=== PATIENT | male | born 1955 | race Caucasian/White ===

== ENCOUNTER → 2016-03-08 | Outpatient (REF) | payer MEDICARE, OTHER ==
[~2016-03-08] MED LIST: ALDA25TA2 PO; AMBI12.52 PO; ASPI81TA85 PO; ATEN25TA PO; ATEN50TA2 PO; CRES40TA PO; DIGO0.12 PO; FERR325T3 PO; FLOM5CAP PO; FURO20TA2 PO; FURO40TA2 PO; HUMA100I5 SC; HUMA75VL SC; INSULADS SC; INSULANT SC; LEVA500T PO; LEXA1TAB PO; LISI25TA PO; LOPRESSOR PO; MAGN64TASA PO; METO-209 PO; MILKSUS PO; NEXI40CA PO; NITR4TASL SL; OXYC30TA72 PO; PROT1TAB2 PO; REGL10TA6 PO; REME15TA PO; TIZA4CAP3 PO; TOUJ1.2I SC; TYLE325T5 PO; VITMTA PO; XARE20TA PO; ZETI10TA2 PO; ZOLP10TA2 PO; [UNRECOGNIZED DRUG - CODE] PO
== END ==
LOC: M LAB REF 16:39
PROVIDERS: ATTEND Nurse Practitioner Adult Health
DX: D64.9 Anemia, unspecified (principal)

== ENCOUNTER 2016-03-09 13:37 | Outpatient (CLI) | payer MEDICARE, OTHER ==
[~2016-03-09 13:37] MED LIST changes: -INSULANT SC; -[UNRECOGNIZED DRUG - CODE] PO
[2016-03-09] MEDS ORDERED: diphenhydrAMINE 25 MG CAP PO ONE (14:00)
[2016-03-09] MEDS ORDERED: ACETAMINOPHEN TAB 650MG DOSE (2X325MG) PO ONE (14:00)
[2016-03-09] MEDS ORDERED: INSULANT SC (14:13)
[2016-03-09] MEDS ORDERED: HUMA100I5 SC (14:13)
[2016-03-09] MEDS ORDERED: METO-209 PO (14:13)
[2016-03-09] MEDS ORDERED: [UNRECOGNIZED DRUG - CODE] PO (14:13)
== END 2016-03-09 15:58 | disposition home or self-care (01) ==
LOC: M INFU 13:37
PROVIDERS: ATTEND Nurse Practitioner Adult Health
DX: D64.9 Anemia, unspecified (principal); Z88.8 Allergy status to other drugs, medicaments and biological substances; Z91.018 Allergy to other foods; Z79.899 Other long term (current) drug therapy; Z79.4 Long term (current) use of insulin

== ENCOUNTER 2016-03-13 12:35 | Outpatient (CLI) | payer MEDICARE, OTHER ==
[~2016-03-13] VITALS: Ht 182.9 cm; Wt 97.1 kg
[~2016-03-13 12:35] MED LIST changes: +INSULANT SC; +[UNRECOGNIZED DRUG - CODE] PO
[2016-03-13] MEDS ORDERED: diphenhydrAMINE 25 MG CAP PO ONE (13:45)
[2016-03-13] MEDS ORDERED: ACETAMINOPHEN TAB 650MG DOSE (2X325MG) PO ONE (13:45)
== END 2016-03-13 20:30 | disposition home or self-care (01) ==
LOC: M INFU 12:35 → M PED 16:30 → M INFU 20:30
PROVIDERS: ATTEND Nurse Practitioner Adult Health
DX: D64.9 Anemia, unspecified (principal); I10 Essential (primary) hypertension; E78.5 Hyperlipidemia, unspecified; E11.9 Type 2 diabetes mellitus without complications; G47.30 Sleep apnea, unspecified; J44.9 Chronic obstructive pulmonary disease, unspecified; M54.9 Dorsalgia, unspecified; M19.90 Unspecified osteoarthritis, unspecified site; Z88.8 Allergy status to other drugs, medicaments and biological substances; Z79.01 Long term (current) use of anticoagulants; Z79.891 Long term (current) use of opiate analgesic; Z79.84 Long term (current) use of oral hypoglycemic drugs; Z79.4 Long term (current) use of insulin; Z79.899 Other long term (current) drug therapy; Z95.810 Presence of automatic (implantable) cardiac defibrillator; Z95.5 Presence of coronary angioplasty implant and graft; Z87.891 Personal history of nicotine dependence
CPT/HCPCS: 36415; 36430; 86850; 86870; 86900; 86901; 86905; 86920; P9016

== ENCOUNTER → 2016-03-16 | Outpatient (REF) | payer MEDICARE, OTHER | LOC: M LAB REF 13:04 | PROVIDERS: ATTEND Internal Medicine Nephrology | DX: D72.829 Elevated white blood cell count, unspecified (principal) ==

== ENCOUNTER → 2016-03-17 | Outpatient (REF) | payer MEDICARE, OTHER | LOC: M LAB REF 12:49 | PROVIDERS: ATTEND Internal Medicine Nephrology | DX: D72.829 Elevated white blood cell count, unspecified (principal) ==

== ENCOUNTER → 2016-03-22 | Outpatient (REF) | payer MEDICARE, OTHER ==
[2016-03-22 18:07] LABS: RETIC HEMOGLOBIN CONTENT CHr 31.4 PG (24-36); RETICULOCYTE % ADVIA2120 1.4 % (0.5-1.5)
== END ==
LOC: M LAB REF 16:46
PROVIDERS: ATTEND Internal Medicine
DX: N18.3 Chronic kidney disease, stage 3 (moderate) (principal); R63.4 Abnormal weight loss; D50.9 Iron deficiency anemia, unspecified

== ENCOUNTER → 2016-03-29 | Outpatient (REF) | payer MEDICARE, OTHER ==
[2016-03-29 18:05] LABS: PERCENT SATURATION 14.6 % (19.7-37.4)
== END ==
LOC: M LAB REF 17:03
PROVIDERS: ATTEND Internal Medicine Nephrology
DX: D50.9 Iron deficiency anemia, unspecified (principal)

== ENCOUNTER → 2016-04-04 | Outpatient (CLI) | payer MEDICARE, OTHER ==
--- NOTE | 2016-04-04 14:44 | REP ---
CAROTID ULTRASOUND: Real-time ultrasound evaluation and duplex Doppler interrogation of the extracranial carotid vasculature is performed. There is moderate plaquing and narrowing in both carotid bulbs extending into the internal and external carotid arteries. Luminal narrowing is less than 50%. There is no evidence of hemodynamically significant stenosis of either internal carotid artery. Normal flow velocities are seen. The vertebral arteries demonstrate normal direction of flow. RIGHT LEFT Peak systolic velocity ICA 63.9 cm/s 68.2 cm/s End diastolic velocity ICA 10.2 cm/s 26.2 cm/s Peak systolic velocity CCA 112.5 cm/s 84.8 cm/s Peak systolic velocity ECA 80.3 cm/s 102.1 cm/s ICA/CCA ratio 0.57 0.8 IMPRESSION: Bilateral luminal narrowing of the internal carotid arteries less than 50%. No evidence of hemodynamically significant stenosis. Signed by Dale Gilman MD 04/04/2016 02:36 P
== END ==
LOC: M RAD 13:19
PROVIDERS: ATTEND Physician Assistant
DX: R09.89 Other specified symptoms and signs involving the circulatory and respiratory systems (principal)

== ENCOUNTER → 2016-04-05 | Outpatient (REF) | payer MEDICARE, OTHER | END | disposition home or self-care (01) | LOC: M LAB REF 14:58 | PROVIDERS: ATTEND Nurse Practitioner Adult Health | DX: I13.0 Hypertensive heart and chronic kidney disease with heart failure and stage 1 through stage 4 chronic kidney disease, or unspecified chronic kidney disease (principal); I48.0 Paroxysmal atrial fibrillation ==

== ENCOUNTER → 2016-04-11 | Outpatient (REF) | payer MEDICARE, OTHER | LOC: M LAB REF 12:24 | PROVIDERS: ATTEND Nurse Practitioner Adult Health | DX: L81.8 Other specified disorders of pigmentation (principal) ==

== ENCOUNTER 2016-04-14 11:03 | Outpatient (CLI) | payer MEDICARE, OTHER ==
[~2016-04-14] VITALS: Ht 185.4 cm; Wt 93.6 kg
[~2016-04-14 11:03] MED LIST changes: +IRON SUCROSE 25 MG in NS 50 ML IV ONE
[2016-04-14] MEDS ORDERED: IRON SUCROSE 475 MG in NS 250 ML IV ONE (12:00)
== END 2016-04-14 16:00 | disposition home or self-care (01) ==
LOC: M INFU 11:03
PROVIDERS: ATTEND Internal Medicine Nephrology
DX: D50.9 Iron deficiency anemia, unspecified (principal); Z79.899 Other long term (current) drug therapy; Z79.4 Long term (current) use of insulin; Z88.8 Allergy status to other drugs, medicaments and biological substances; Z91.018 Allergy to other foods
CPT/HCPCS: 96365; 96366; J1756

== ENCOUNTER → 2016-05-16 | Outpatient (REF) | payer MEDICARE, OTHER ==
[~2016-05-16] MED LIST changes: +ASCO25TA PO; +ASPI81TA21 PO; +BACT2OIN12; +ESCI20TA PO; -IRON SUCROSE 25 MG in NS 50 ML IV ONE; +LACT20EL PO; +LISI2.5T3 PO; +METO12TA PO; +MOVA1TAB PO; +OCEA0.654; +OXYC1TAB23 PO; +PROA1AER INH; +PROBCAP4 PO; +ROCA0.25 PO; +SUCR1TA PO; +TORS20TA2 PO; +VITA100066 PO
== END ==
LOC: M LAB REF 16:19
PROVIDERS: ATTEND Nurse Practitioner Adult Health
DX: I50.42 Chronic combined systolic (congestive) and diastolic (congestive) heart failure (principal); R00.1 Bradycardia, unspecified; D50.9 Iron deficiency anemia, unspecified

== ENCOUNTER 2016-05-18 14:52 | Outpatient (CLI) | payer MEDICARE, OTHER ==
[~2016-05-18 14:52] MED LIST changes: +ACETAMINOPHEN TAB 650MG DOSE (2X325MG) PO SCH; -ASCO25TA PO; -ASPI81TA21 PO; -BACT2OIN12; -ESCI20TA PO; -LACT20EL PO; -LISI2.5T3 PO; -METO12TA PO; -MOVA1TAB PO; -OCEA0.654; -OXYC1TAB23 PO; -PROA1AER INH; -PROBCAP4 PO; -ROCA0.25 PO; -SUCR1TA PO; -TORS20TA2 PO; -VITA100066 PO; +diphenhydrAMINE 25 MG CAP PO SCH
[2016-05-18 15:05] VITALS: BP 117/54
[2016-05-19] MEDS ORDERED: TORS20TA2 PO ×2 (10:05)
[2016-05-19] MEDS ORDERED: ASCO25TA PO (10:05)
[2016-05-19] MEDS ORDERED: PROBCAP4 PO (10:05)
[2016-05-19] MEDS ORDERED: OCEA0.654 (12:49)
[2016-05-19] MEDS ORDERED: PROA1AER INH (12:49)
[2016-05-19] MEDS ORDERED: LISI2.5T3 PO (12:49)
[2016-05-19] MEDS ORDERED: ROCA0.25 PO (12:49)
[2016-05-19] MEDS ORDERED: SUCR1TA PO (12:49)
[2016-05-19] MEDS ORDERED: ESCI20TA PO (12:49)
[2016-05-19] MEDS ORDERED: ALDA25TA2 PO (12:49)
[2016-05-19] MEDS ORDERED: FLOM5CAP PO (12:49)
[2016-05-19] MEDS ORDERED: ASPI81TA21 PO (12:49)
[2016-05-19] MEDS ORDERED: VITA100066 PO (12:49)
[2016-05-19] MEDS ORDERED: LACT20EL PO (12:49)
[2016-05-19] MEDS ORDERED: METO12TA PO (12:49)
[2016-05-19] MEDS ORDERED: MOVA1TAB PO (12:49)
== END 2016-05-18 19:30 | disposition home or self-care (01) ==
LOC: M OPCLI4PR 14:52 → M OPCLIPED 14:52 → M PED 14:57 → M OPCLI4PR 14:57 → M PED 15:22 → M OPCLIPED 19:30
PROVIDERS: ATTEND Nurse Practitioner Adult Health
DX: D64.9 Anemia, unspecified (principal); Z88.8 Allergy status to other drugs, medicaments and biological substances
CPT/HCPCS: 36430; P9016

== ENCOUNTER 2016-05-19 09:42 | Observation (INO) | payer MEDICARE, OTHER ==
[~2016-05-19] VITALS: Ht 182.9 cm; Wt 94.6 kg
[~2016-05-19 09:42] MED LIST changes: +**UNRESOLVED NON-FORMULARY MED ORDER XX SCH; -ACETAMINOPHEN TAB 650MG DOSE (2X325MG) PO SCH; -diphenhydrAMINE 25 MG CAP PO SCH
[2016-05-19] MEDS ORDERED: PROBCAP4 PO (10:05)
[2016-05-19] MEDS ORDERED: TORS20TA2 PO ×2 (10:05)
[2016-05-19] MEDS ORDERED: ASCO25TA PO (10:05)
[2016-05-19 11:27] LABS: INR 2.03
[2016-05-19] MEDS ORDERED: PROPOFOL 200 MG/20 ML VIAL As Ordered ONE (12:39)
[2016-05-19] MEDS ORDERED: dexameTHASONE 4 MG/ML 1ML VIAL (J1100) As Ordered ONE (12:39)
[2016-05-19] MEDS ORDERED: LIDOCAINE 2% INJ 100 MG/5 ML SDV (FOR ANES.) As Ordered ONE (12:39)
[2016-05-19] MEDS ORDERED: ROCURONIUM BROMIDE 50 MG/5 ML VIAL As Ordered ONE (12:39)
[2016-05-19] MEDS ORDERED: ONDANSETRON 4MG/2ML VIAL (J2405) As Ordered ONE (12:39)
[2016-05-19] MEDS ORDERED: MIDAZOLAM INJ 2 MG/2 ML VIAL (J2250) As Ordered ONE (12:40)
[2016-05-19] MEDS ORDERED: fentaNYL 250 MCG/5 ML INJECTION (J3010) As Ordered ONE (12:40)
[2016-05-19 12:46] LABS: CALCIUM LEVEL 9.2 MG/DL (8.8-10.2); CREATININE FOR GFR 2.54 MG/DL (0.70-1.30); GLOMERULAR FILTRATION RATE 27.7 (>49); POTASSIUM SERUM 3.4 MEQ/L (3.5-5.1)
[2016-05-19] MEDS ORDERED: OCEA0.654 (12:49)
[2016-05-19] MEDS ORDERED: METO12TA PO (12:49)
[2016-05-19] MEDS ORDERED: ROCA0.25 PO (12:49)
[2016-05-19] MEDS ORDERED: FLOM5CAP PO (12:49)
[2016-05-19] MEDS ORDERED: ESCI20TA PO (12:49)
[2016-05-19] MEDS ORDERED: VITA100066 PO (12:49)
[2016-05-19] MEDS ORDERED: LISI2.5T3 PO (12:49)
[2016-05-19] MEDS ORDERED: SUCR1TA PO (12:49)
[2016-05-19] MEDS ORDERED: ALDA25TA2 PO (12:49)
[2016-05-19] MEDS ORDERED: MOVA1TAB PO (12:49)
[2016-05-19] MEDS ORDERED: ASPI81TA21 PO (12:49)
[2016-05-19] MEDS ORDERED: PROA1AER INH (12:49)
[2016-05-19] MEDS ORDERED: LACT20EL PO (12:49)
[2016-05-19] MEDS ORDERED: SODIUM CHLORIDE 0.9% NASAL GEL 15MG (AYR) As Ordered ONE (12:51)
[2016-05-19] MEDS ORDERED: METHYLENE BLUE 0.5% (5MG/ML) 10 ML AMP (PROVAYBLUE)(Q9968 PER 1MG) As Ordered ONE (12:51)
[2016-05-19] MEDS ORDERED: EPINEPHrine INJ 1 MG/ML 1ML VIAL/AMP As Ordered ONE (12:51)
[2016-05-19] MEDS ORDERED: LIDOCAINE W/EPINEPHRINE 1% 20ML VIAL As Ordered ONE (12:51)
--- NOTE | 2016-05-19 13:07 | HPEPDOC ---
Medical History and Physical Date of Admission 05/19/16 History and Physical ATTENDING: Dr. Jennings PCP: Dr Palomino litigation legal assistant Dr Perera CC: Rt side epistaxis HPI: 60yoM with a past medical history significant for CAD/CABG, Afib, IDDM, anemia, recurrent epistaxis who reports sudden onset of rt sided epistaxis this AM while driving to [employer]. Noted bleeding and clots and difficulty getting the bleeding to subside to he turned around and came to ED. Pt denies SOB/CP, or recent NTG use. Denies any fevers, chills, weakness, fatigue, PULLIAM,cough, palpitations, abdominal pain, N/V/D or changes in bowel or bladder habits. Upon presentation to the hospital the patient was found to have Rt sided epistaxis, anemia, thus the hospitalist team was consulted. ENT is consulted, has seen pt in ED, and is planning surgical intervention. PMHx: recurrent epistaxis with cautery procedures, rt side. H/O WA/CAD/Stent/CABG Afib CHF TTE 07/04 EF 40%, Grade 2 DD Hypomagnesemia H/O Fe def Anemia HLD Depressiion Insomnia HTN IDDM Chronic knee pain Chronic constipation PSHX: CABG 1990 Redo CABG 1997 AICD B/L Ankle surgery Rt knee surgery x 2 EGD 01/04 Campos chronic inflammation Colonoscopy 01/04 adenomatous polyp x 1 Bronchoscopy 02/28 Osmany Cautery epistaxis -ENT. SOCHX: Resides in: [place] Marital Status: Kids: 4 Employment: retired [employer] Tobacco use: quit 1990 ETOH: Quit 1 year ago, previously drank daily. Illicit Drugs: Denies Recent travel: denies Advanced directives: none FAMHX: Mother: emphysema Father: Ca Siblings: 4 sister, 1 brother Alive, well Children: Alive, well Unexpected deaths due to medical reasons: None. ROS: As noted in HPI, otherwise 11pt ROS of systems reviewed and unremarkable. PE: GEN: 60yoM, appears stated age. Well-nourished, well developed. No acute distress. Alert and oriented x 3. Pleasant, interactive. HEENT: Normocephalic, atraumatic. Pupils are equal, round, and reactive to light. Extraocular movements are intact. No nystagmus appreciated. Sclera are nonicteric. Conjunctiva without injection. Nose midline. Packing noted Rt nostril. EACs both patent BL. TMs both visualized and blanco with good cone of light, no bulging or erythema. No facial asymmetry. Moist mucous membranes. Dentition fair. Pharynx pink and moist, no cobblestoning. Neck supple, trachea midline. No lymphadenopathy or thyromegaly appreciated. CHEST: Regular rate and rhythm, +S1, +S2. No JVD. LUNGS: Clear to auscultation bilaterally. No wheezes, rales, or rhonchi. Breathing appears symmetric and easy. Patient is speaking in full sentences. No accessory muscle use. ABD: Round, soft, non-tender, non-distended. +Bowel sounds throughout. No rebound or guarding. No costovertebral angle tenderness. EXT: Pulses 2+ bilaterally dorsalis pedis and radial. No lower extremity edema appreciated. Chronic venous changes noted. SKIN: [place], dry, warm. Capillary refill <2sec. No rashes. NEURO: Alert and oriented x 3. Cranial nerves III-XII are intact. No focal deficits appreciated. A&P: HPI: 60yoM with a past medical history significant for CAD/CABG, Afib, IDDM, anemia, recurrent epistaxis who reports sudden onset of rt sided epistaxis this AM while driving to [employer]. Noted bleeding and clots and difficulty getting the bleeding to subside to he turned around and came to ED The patient will be admitted to PCU Dr. Jennings's service. Pt is discussed with Dr Trejo. Pt is currently going directly to the OR as per ENT. Recurrent Epistaxis. Pt has been evaluated by ENT and plan is for OR. Type and cross ordered. Consent for blood on chart. IVF at 100cc/hr. TC. IVF ordered. Baseline apears to be 1.8-1.9. Hypokalemia. K3.4 noted. Will recheck at 6 PM. Supplement if needed. Acute Blood loss Anemia. H/O Fe def. On Fe supplement as outpt. T&C completed. Consent on chart. Monitor H/H Q6. Afib. Hold Xarelto for now. Re asses postop. CAD/H/O WA/CABG. No recent NTG use. PCU/TM. Plan to order meds post op. CHF/DD. TTE EF40%/Gr2 DD. Monitor closely. Cautious use of IVF. Reorder meds postop. Hypomagnesemia. Add shanna level to labs. HLD. restart Statin post op. IDDM. Pt takes Lantus/SSI Chronic knee pain. Pt takes Zohydro. chronic constipation. Pt takes Movantik. DVT prophylaxis. SCD/TEDS The patient is a Full CODE. Attending note: patient seen and examined independently. Discussed finding and treatment plan as outlined above. Vital Signs Vital Signs Label Value Date Time Patient Temperature 99.3 degrees F 05/19/16 1247 Temperature Source Oral 05/19/16 1247 Pulse 54 05/19/16 1247 Respiratory Rate 16 bpm 05/19/16 1247 Blood Pressure Assessment 139/63 (88) 05/19/16 1247 Location Left Arm Source Automatic Cuff (NIBP) Bedside Pulse Oximetry 99 % 05/19/16 1247 Item Value Date Time Oxygen Delivery Method Room Air 05/19/16 1247 Laboratory Data Labs 24H Laboratory Tests 2 05/19/16 11:08: Activated Partial Thromboplast Time 47.5H, Prothromb Time International Ratio 2.03, Prothrombin Time 23.0H 05/19/16 11:09: Anion Gap 7L, Blood Urea Nitrogen 47H, Creatinine 2.54H, Sodium Level 137, Potassium Level 3.4L, Chloride Level 103, Carbon Dioxide Level 27, Calcium Level 9.2, Glomerular Filtration Rate 27.7L CBC/BMP Laboratory Tests 05/19/16 11:09 Calcium Level 9.2 Home Medications Scheduled (Zohydro ER) 50 Mg Cap 100 MG PO BID Ascorbic Acid (Vitamin C) 250 Mg Tab 250 MG PO BID Calcitriol (Rocaltrol) 0.25 Mcg Cap 0.25 MCG PO 3XW SUNDAY,SUNDAY,SUNDAY Cholecalciferol (Vitamin D) 1,000 Unit Tab 1,000 UNIT PO QPM Digoxin (Digoxin) 0.125 Mg Tab 0.125 MG PO DAILY Escitalopram Oxalate (Escitalopram Oxalate) 20 Mg Tab 20 MG PO QHS Esomeprazole Magnesium Trihydr (Nexium) 40 Mg Cap 40 MG PO BID Ezetimibe (Zetia) 10 Mg Tab 10 MG PO QPM Ferrous Sulfate (Ferrous Sulfate) 325 Mg Tab 325 MG PO BID Insulin Glargine (Lantus) 1 Units/0.01 Ml Susp 40 UNITS SC BID Insulin Human Lispro (Humalog Kwikpen) 100 Unit/Ml Inj 1 DOSE SC TID PER SLIDING SCALE Lactobacillus Acidophilus (Probiotic) 1 Cap Cap 1 CAP PO DAILY Lisinopril (Lisinopril) 2.5 Mg Tab 2.5 MG PO QHS Magnesium Chloride (Mag64) 64 Mg Tabcr 64 MG PO TID Metoprolol Tartrate (Metoprolol Tartrate) 25 Mg Tab 25 MG PO BID Mupirocin (Bactroban Nasal) 1 Gm Oint 1 GM NA TID Naloxegol Oxalate (Movantik) 12.5 Mg Tab 12.5 MG PO QAM Rosuvastatin Calcium (Crestor) 40 Mg Tab 40 MG PO QPM Sodium Chloride (Larue Nasal [place]) 0.65 % Spr 2 SPRAY NA BID EACH NOSTRIL Spironolactone (Aldactone) 25 Mg Tab 12.5 MG PO DAILY Sucralfate (Carafate) 1 Gm Tab 1 GM PO BID Tamsulosin Hydrochloride (Flomax) 0.4 Mg Cap 0.4 MG PO QAM Torsemide (Torsemide) 20 Mg Tab 40 MG PO QAM Torsemide (Torsemide) 20 Mg Tab 60 MG PO QPM Scheduled PRN Albuterol Sulfate (Proair Hfa) 108 Mcg/Act Aer 2 PUFF INH Q4H PRN PRN SHORTNESS OF BREATH Lactulose (Lactulose) 10 Gm/15 Ml Bailey 30 GM PO PRN PRN PRN CONSTIPATION Nitroglycerin (Nitrostat) 0.4 Mg Subl 0.4 MG SL PRN PRN PRN CHEST PAIN Oxycodone/Acetaminophen (Oxycodone/Acetaminophen 5-325 mg) 1 Tab Tab 1 TAB PO Q6HP PRN PRN pain Zolpidem Tartrate (Zolpidem Tartrate) 10 Mg Tab 10 MG PO QHS PRN PRN SLEEP Allergies Coded Allergies: Talavera Pepper (Unverified Allergy, Severe, Vomitting, throat swells, 10/14/13 ) Per [facility] chart Calamine (Unverified Allergy, Intermediate, Hives, 10/14/13) Per [facility] chart Ketorolac (Unverified Adverse Reaction, Intermediate, Extreme itching, ) Per [facility] chart Daisy Akins May 19, 2016 13:07 SHONNA TREJO DO May 20, 2016 18:01
[2016-05-19] MEDS ORDERED: NS 1,000 ML IV SCH (13:08)
[2016-05-19] MEDS ORDERED: EPINEPHrine 1MG/ML INJ 30ML MD-VIAL As Ordered ONE (13:15)
[2016-05-19] MEDS ORDERED: THROMBIN SOLN 5,000 UNITS VIAL As Ordered ONE (13:18)
[2016-05-19] MEDS ORDERED: SILVER NITRATE APPLICATOR As Ordered ONE (13:19)
[2016-05-19] MEDS ORDERED: OXYMETAZOLINE NASAL SPRAY (AFRIN) As Ordered ONE (13:19)
[2016-05-19] MEDS ORDERED: GLYCOPYRROLATE INJ 0.2 MG/ML 2 ML VIAL As Ordered ONE (14:51)
[2016-05-19] MEDS ORDERED: NEOSTIGMINE 1MG/ML 5 ML SYRINGE (J2710) As Ordered ONE (14:51)
[2016-05-19] MEDS ORDERED: PERCOCET 5MG/325MG TAB As Ordered ONE (15:57)
[2016-05-19] MEDS ORDERED: NORCO, ANEXSIA 5/325MG TABLET (HYDROcodone/ACETAMINOPHEN) PO PRN (16:00)
[2016-05-19] MEDS: PERCOCET 5MG/325MG TAB PO PRN ×2 (16:00→20:12)
[2016-05-19] MEDS ORDERED: ONDANSETRON 4MG/2ML VIAL (J2405) IV PRN ×2 (16:00→18:00)
[2016-05-19] MEDS ORDERED: LR 1,000 ML IV SCH ×2 (16:00→16:30)
[2016-05-19] MEDS ORDERED: fentaNYL 100 MCG/2 ML INJECTION (J3010) IV PRN (16:00)
--- NOTE | 2016-05-19 16:01 | ROOPDOC ---
[facility] Report Of Operation Report of Operation DATE OF PROCEDURE: 05/19/16 PREPROCEDURE DIAGNOSIS: Ear right-sided and recurrent epistaxis with deviation of the nasal septum to the right and turbinate hypertrophy with nasal obstruction POSTPROCEDURE DIAGNOSIS: See above PROCEDURE: #1. Nasal septal reconstruction #2. Bilateral inferior turbinate outfracture #3. Nasal endoscopy with use of bipolar cautery to control right-sided epistaxis SURGEON: Elizabeth Waite M.D. TRUCK FARMER: None ANESTHESIA: General endotracheal DESCRIPTION OF PROCEDURE: Estimated blood loss was approximately 25 mL and the patient had bioreabsorbable nasal pore placed adjacent and lateral to the right middle turbinate at the end of the procedure. The patient was taken to the operating room on an emergent basis from the emergency room after a hospitalist consult due to recurrent and severe right-sided epistaxis which has been a problem since November 2015. I have reviewed with the patient and his the recurrent risks of epistaxis and also this procedure which is to be performed to identify and attempt to control the area of bleeding in the operating room. They wished to proceed. Once the patient was in the operating room he was given a general anesthetic and a timeout was performed. The patient was placed in a modified beachchair position and his nasal area was prepped with Betadine after his eyes were protected with Tegaderm. He was draped in a sterile fashion and the nasal packing that the patient had placed himself was removed. Pledgets that were soaked in Afrin were placed in each nostril for approximately 5 minutes. These were then removed and we evaluated the nasal passageways which confirmed a severe deflection of the nasal septum to the right. An area of brisk bleeding was noted on the right side adjacent to the most severely deflected area on the right. Control of the area was then obtained using bipolar cautery set at 30. We replaced the pledgets for several minutes and then after removal injected around the area with 4 mL of 1% lidocaine with epinephrine 1 100,000. Hemitransfixion incision was made just anterior to this and we elevated a small amount of mucosa and removed a small spur. Incision was less than 1 cm and no closure was carried out. We then cauterized just anterior to the incision and at the anterior margin of the incision with the bipolar cautery. We then perform nasal endoscopy with the 4 mm 0 scope from anterior to posterior and at this point the airway was significantly improved. There was a small spur more posteriorly and we cauterized adjacent to this under endoscopic guidance. There was minimal bleeding in this area. We took some time now and visualized the ostiomeatal unit on the right. There was noted to be an accessory os and we placed a small amount of packing adjacent to this and just medial to this area at the level of the middle turbinate as well. This was performed with resorbable nasal pore. We irrigated out both nasal passageways and performed nasal endoscopy on the left and this appeared clear without bleeding. Both inferior turbinates were outfractured with a Boies nasal elevator. Again nasal endoscopy was carried out and there was no active bleeding and where the bipolar cautery had been used there was no evidence of bleeding whatsoever. The airway looked excellent. The oral cavity was visualized and there was no bleeding. At this point the procedure was terminated. The sponge needle and sharp count were noted to be correct. The patient was awakened, extubated and taken to the recovery room. There were no complications. ELIZABETH WAITE MD May 19, 2016 16:01
[2016-05-19] MEDS ORDERED: SODIUM CHLORIDE NASAL 0.65% SPRAY BTL (OCEAN) PRN (16:30)
[2016-05-19] MEDS ORDERED: TORSEMIDE 20 MG TAB PO SCH (17:00)
[2016-05-19 18:02] LABS: MEAN CORPUSCULAR HEMOGLOBIN 32.2 pg (27.0-33.0); MEAN CORPUSCULAR HGB CONC 34.8 g/dl (32.0-36.5); MEAN CORPUSCULAR VOLUME 92.4 fl (80.0-96.0); RED CELL DISTRIBUTION WIDTH 16.6 % (11.5-14.5); WHITE BLOOD COUNT 6.1 K/mm3 (4.0-10.0)
[2016-05-19] MEDS ORDERED: GLUCOSE 4 GM CHEW TABLET PO PRN (18:15)
[2016-05-19] MEDS ORDERED: LACTULOSE 20 GM/30 ML SYRUP UD PO PRN (18:15)
[2016-05-19] MEDS ORDERED: ALBUTEROL 90 MCG/ACT 8GM HFA INHALER INH PRN (18:15)
[2016-05-19] MEDS ORDERED: NITROGLYCERIN 0.4 MG SUBL TABLET SL PRN (18:15)
[2016-05-19] MEDS ORDERED: GLUCAGON FOR INJ 1 MG VIAL (J1610) SC PRN (18:15)
[2016-05-19] MEDS ORDERED: DEXTROSE 50% 50 ML SYRINGE IV PRN (18:15)
[2016-05-19 18:21] LABS: CALCIUM LEVEL 8.9 MG/DL (8.8-10.2); CREATININE FOR GFR 2.33 MG/DL (0.70-1.30); GLOMERULAR FILTRATION RATE 30.6 (>49); POTASSIUM SERUM 3.2 MEQ/L (3.5-5.1)
[2016-05-19 19:30] VITALS: BP 142/65
[2016-05-19 20:00] VITALS: BP 135/62
[2016-05-19] MEDS ORDERED: POTASSIUM CHLORIDE 10 MEQ SR TABLET PO ONE (20:15)
[2016-05-19 21:00] VITALS: BP 120/60
[2016-05-19] MEDS ORDERED: HumaLOG INSULIN (NovoLOG) PER UNIT SC SCH (21:00)
[2016-05-19] MEDS ORDERED: ROSUVASTATIN 10 MG TAB (CRESTOR) PO SCH (21:00)
[2016-05-19] MEDS ORDERED: VITAMIN D 1,000 INTERNATIONAL UNITS TABLET PO SCH (21:00)
[2016-05-19] MEDS ORDERED: ESCITALOPRAM OXALATE 10 MG TAB (LEXAPRO) PO SCH (21:00)
[2016-05-19] MEDS ORDERED: EZETIMIBE 10 MG TAB (ZETIA) PO SCH (21:00)
[2016-05-19] MEDS ORDERED: zolPIDEM TARTRATE 10MG TAB PO SCH (21:00)
[2016-05-19] MEDS ORDERED: LISINOPRIL *2.5 MG* TAB PO SCH (21:00)
[2016-05-19 22:00] VITALS: BP 124/58
[2016-05-19] MEDS: HYDROCODONE PO SCH (22:18)
[2016-05-19] MEDS: SUCRALFATE 1 GM TAB PO SCH (22:19)
[2016-05-19] MEDS: MAGNESIUM CHLORIDE 64 MG TABCR (SLO MAG) PO SCH (22:20)
[2016-05-19] MEDS: ASCORBIC ACID 250 MG TAB PO SCH (22:21)
[2016-05-19] MEDS: PANTOPRAZOLE 40MG TAB (PROTONIX) PO SCH (22:21)
[2016-05-19] MEDS: FERROUS SULFATE 325MG TAB PO SCH (22:21)
[2016-05-19] MEDS: METOPROLOL TART 25 MG TABLET PO SCH (22:22)
[2016-05-19] MEDS: SODIUM CHLORIDE NASAL 0.65% SPRAY BTL (OCEAN) SCH (22:24)
[2016-05-19] MEDS: LEVEMIR (INSULIN DETEMIR) 1 UNITS/0.01ML SC SCH (22:24)
[2016-05-19 23:00] VITALS: BP 124/65
[2016-05-20] VITALS: BP 120/58
[2016-05-20] MEDS: PERCOCET 5MG/325MG TAB PO PRN ×4 (00:13→12:07)
[2016-05-20 00:21] LABS: MEAN CORPUSCULAR HEMOGLOBIN 32.3 pg (27.0-33.0); MEAN CORPUSCULAR HGB CONC 34.5 g/dl (32.0-36.5); MEAN CORPUSCULAR VOLUME 93.8 fl (80.0-96.0); RED CELL DISTRIBUTION WIDTH 16.7 % (11.5-14.5); WHITE BLOOD COUNT 5.6 K/mm3 (4.0-10.0)
[2016-05-20 06:00] VITALS: BP 105/51
[2016-05-20] MEDS: SODIUM CHLORIDE NASAL 0.65% SPRAY BTL (OCEAN) SCH ×2 (06:40→12:09)
[2016-05-20 06:56] LABS: MEAN CORPUSCULAR HEMOGLOBIN 30.7 pg (27.0-33.0); MEAN CORPUSCULAR HGB CONC 32.4 g/dl (32.0-36.5); MEAN CORPUSCULAR VOLUME 94.7 fl (80.0-96.0); RED CELL DISTRIBUTION WIDTH 16.8 % (11.5-14.5); WHITE BLOOD COUNT 4.8 K/mm3 (4.0-10.0)
[2016-05-20 06:58] LABS: ALBUMIN 3.4 GM/DL (3.2-5.2); ALBUMIN/GLOBULIN RATIO 0.87 (1.00-1.93); CALCIUM LEVEL 8.6 MG/DL (8.8-10.2); CREATININE FOR GFR 2.35 MG/DL (0.70-1.30); GLOMERULAR FILTRATION RATE 30.3 (>49); MAGNESIUM LEVEL 2.1 MG/DL (1.8-2.4); POTASSIUM SERUM 3.5 MEQ/L (3.5-5.1); TOTAL PROTEIN 7.3 GM/DL (6.4-8.2)
[2016-05-20] MEDS ORDERED: POTASSIUM CHLORIDE 10 MEQ SR TABLET PO ONE (07:45)
[2016-05-20] MEDS: HumaLOG INSULIN (NovoLOG) PER UNIT SC SCH ×2 (08:54→12:08)
[2016-05-20] MEDS: HYDROCODONE PO SCH (08:54)
[2016-05-20] MEDS: MAGNESIUM CHLORIDE 64 MG TABCR (SLO MAG) PO SCH (08:54)
[2016-05-20] MEDS: SUCRALFATE 1 GM TAB PO SCH (08:55)
[2016-05-20] MEDS: LEVEMIR (INSULIN DETEMIR) 1 UNITS/0.01ML SC SCH (08:55)
[2016-05-20 08:56] VITALS: BP 105/51
[2016-05-20] MEDS: PANTOPRAZOLE 40MG TAB (PROTONIX) PO SCH (08:56)
[2016-05-20] MEDS: METOPROLOL TART 25 MG TABLET PO SCH (08:56)
[2016-05-20] MEDS: ASCORBIC ACID 250 MG TAB PO SCH (08:56)
[2016-05-20] MEDS: FERROUS SULFATE 325MG TAB PO SCH (08:56)
[2016-05-20] MEDS ORDERED: TAMSULOSIN 0.4 MG CAP PO SCH (09:00)
[2016-05-20] MEDS ORDERED: SPIRONOLACTONE 12.5MG PER 1/2 TABLET PO SCH (09:00)
[2016-05-20] MEDS ORDERED: TORSEMIDE 20 MG TAB PO SCH (09:00)
[2016-05-20] MEDS ORDERED: DIGOXIN 0.125 MG TAB PO SCH (09:00)
[2016-05-20] MEDS ORDERED: LACTOBACILLUS ACIDOPHILUS CAP (BACID) PO SCH (09:00)
--- NOTE | 2016-05-20 10:49 | IPNPDOC ---
Date Seen The patient was seen on 05/20/16. Progress Note SUBJECTIVE: Patient is a 60-year-old white male with a history of right-sided epistaxis who went to the operating room yesterday for a septoplasty and control of severe right-sided epistaxis. OBJECTIVE PHYSICAL EXAMINATION: VITAL SIGNS: Please see below. GENERAL: He appears to be doing well without evidence of bleeding. HEENT: No evidence of bleeding. His right nasal passage was examined with a crust noted at the mid anterior septum. CARDIOVASCULAR: Pulse irregular and unchanged. RESPIRATORY: Respiratory rate is regular. ABDOMINAL: No distention noted EXTREMITIES: Not examined NEUROLOGICAL: No focal abnormalities PSYCHOLOGICAL: Ordered and oriented 3 LABORATORY DATA: Please see below. ASSESSMENT AND PLAN: This is a 60-year-old white male with right epistaxis status post surgical intervention. He has several medical problems for which she is being followed by the hospitalist including anemia and coronary artery disease and diabetes PROBLEMS: 1. Stable epistaxis status post surgical intervention: I reviewed this with him and with the hospitalist. After he receives a unit of blood today for his anemia he will be discharged on Bactroban ointment to be used in the right nasal passageway and frequent saline use and epistaxis precautions. I will also suggest Percocet 5/325 one tablet every 4 hours for pain for the next 5 days. Our office will contact him on Sunday for follow-up. DISPOSITION: Instructions were reviewed in detail with the patient and the patient was discussed with Dr Jennings, the hospitalist. VS, I&O, 24H, Fishbone Vital Signs/I&O Vital Signs Date Time Temp Pulse Resp B/P Pulse Ox O2 Delivery O2 Flow Rate FiO2 05/20/16 08:56 66 105/51 05/20/16 08:42 14 05/20/16 06:00 98.5 95 Room Air 05/19/16 15:17 2 I&O- Last 24 Hours up to 6 AM 05/20/16 06:00 Intake Total 2570 ml Output Total 525 ml Balance 2045 ml Laboratory Data 24H LABS Laboratory Tests 2 05/19/16 11:08: Activated Partial Thromboplast Time 47.5H, Prothromb Time International Ratio 2.03, Prothrombin Time 23.0H 05/19/16 11:09: Anion Gap 7L, Blood Urea Nitrogen 47H, Creatinine 2.54H, Sodium Level 137, Potassium Level 3.4L, Chloride Level 103, Carbon Dioxide Level 27, Calcium Level 9.2, Glomerular Filtration Rate 27.7L 05/19/16 15:25: Bedside Glucose (Misc Panel) 121H 05/19/16 17:51: Anion Gap 11, Blood Urea Nitrogen 45H, Creatinine 2.33H, Sodium Level 137, Potassium Level 3.2L, Chloride Level 102, Carbon Dioxide Level 24, Calcium Level 8.9, Glomerular Filtration Rate 30.6L 05/19/16 21:54: Bedside Glucose (Misc Panel) 187H 05/20/16 06:20: Blood Urea Nitrogen 45H, Creatinine 2.35H, Sodium Level 137, Potassium Level 3.5 , Chloride Level 102, Carbon Dioxide Level 28, Calcium Level 8.6L, Aspartate Amino Transf (AST/SGOT) 14L, Alanine Aminotransferase (ALT/SGPT) 8L, Alkaline Phosphatase 60, Total Bilirubin 1.0, Total Protein 7.3, Albumin 3.4, Albumin/ Globulin Ratio 0.87L, Anion Gap 7L, Glomerular Filtration Rate 30.3L, Magnesium Level 2.1 CBC/BMP Laboratory Tests 05/19/16 11:09 Calcium Level 9.2 05/19/16 17:51 Calcium Level 8.9, Red Blood Count 2.86 L, Mean Corpuscular Volume 92.4, Mean Corpuscular Hemoglobin 32.2, Mean Corpuscular Hemoglobin Concent 34.8, Red Cell Distribution Width 16.6 H 05/20/16 00:07 Red Blood Count 2.82 L, Mean Corpuscular Volume 93.8, Mean Corpuscular Hemoglobin 32.3, Mean Corpuscular Hemoglobin Concent 34.5, Red Cell Distribution Width 16.7 H 05/20/16 06:20 Calcium Level 8.6 L, Red Blood Count 2.80 L, Mean Corpuscular Volume 94.7, Mean Corpuscular Hemoglobin 30.7, Mean Corpuscular Hemoglobin Concent 32.4, Red Cell Distribution Width 16.8 H, Aspartate Amino Transf (AST/SGOT) 14 L, Alanine Aminotransferase (ALT/SGPT) 8 L, Alkaline Phosphatase 60, Total Bilirubin 1.0, Total Protein 7.3, Albumin 3.4 ELIZABETH WAITE MD May 20, 2016 10:49
[2016-05-20] MEDS ORDERED: OXYC1TAB23 PO (10:51)
[2016-05-20] MEDS ORDERED: BACT2OIN12 (10:51)
--- NOTE | 2016-05-20 21:58 | DSES ---
DATE OF ADMISSION: 05/19/2016 DATE OF DISCHARGE: 05/20/2016 PRIMARY CARE PROVIDER: Dr. Palomino. VIDEO TAPE DUPLICATOR: Dr. Perera. ENT: Dr. Alvarado. FINAL DIAGNOSES: 1. Acute blood loss anemia secondary to epistaxis. 2. Acute kidney injury. 3. Hypokalemia. 4. Atrial fibrillation. 5. Coronary arterial disease with history of coronary artery bypass graft (CABG). 6. Congestive heart failure (CHF) with diastolic dysfunction history. 7. Hypomagnesemia. 8. Dyslipidemia. 9. Insulin-dependent diabetes. 10. Chronic knee pain. 11. Chronic constipation. HISTORY OF PRESENT ILLNESS: This is a 60-year-old male patient with underlying medical history of coronary arterial disease with CABG, atrial fibrillation on Xarelto, insulin-dependent type 2 diabetes, anemia, recurrent epistaxis, who was recently with sudden-onset of right-sided epistaxis in the morning while driving to [employer], noted to have bleeding and clots and difficulty getting the bleeding to subside. The patient turned around and went to the emergency room. Denies any shortness of breath or chest pain or recent nasogastric tube. Denies any fevers, chills, weakness, fatigue, headache, coughing, palpitations, abdominal pain, nausea, vomiting, or diarrhea. No change of bowel habits. Upon presentation to the hospital, the patient was found to have right-sided epistaxis, anemia. Hospitalist was called for admission, and ENT was consulted. HOSPITAL COURSE: The patient was taken to same-day surgery by ENT with cauterization and monitored overnight. Frequent hemoglobin and hematocrit were monitored. The patient's Xarelto has been discontinued as well as aspirin. The patient's kidney function was monitoring to be at baseline. Electrolytes were supplemented including potassium. The patient was transfused one unit of packed red blood cells (PRBCs) this morning, and no further episodes of bleeding occurred overnight. Hemoglobin remained relatively stable. The patient had no respiratory distress, tolerating oral, comfortable and would like to be discharged. VITAL SIGNS: Temperature 98.5, pulse 66, respirations 17, blood pressure 105/51, pulse oximetry 95% on room air. LABORATORY DATA: WBC 4.8, hemoglobin and hematocrit 8.6 over 26.5, platelets 94. Chemistry: Sodium 137, potassium 3.5, chloride 102, bicarbonate 28, BUN 45, creatinine 2.35. DISCHARGE MEDICATIONS: - Bactroban nasal ointment three times a day as per ENT - Percocet 5/325 mg by mouth every six hours as needed; 20 tablets prescribed as per ENT - ProAir inhalation every four hours as needed - vitamin C 250 mg by mouth twice a day - calcitriol 0.25 mg by mouth three times a week - vitamin D 1000 units by mouth every evening - digoxin 0.125 mg by mouth daily - Lexapro 20 mg by mouth at bedtime - Nexium 40 mg by mouth twice a day - Zetia 10 mg by mouth daily - ferrous sulfate 325 mg by mouth twice a day - Lantus 40 units subcutaneous twice a day - mealtime insulin as per protocol - Probiotics one capsule by mouth daily - lactulose 30 (please clarify) by mouth as needed for constipation - lisinopril 2.5 mg by mouth at bedtime - magnesium chloride 64 mg by mouth three times a day - metoprolol tartrate 25 mg by mouth twice a day - 12.5 mg by mouth in the morning - nitroglycerin 0.4 mg sublingual as needed - Crestor 40 mg by mouth daily - saline nasal spray twice a day - aldactone 12.5 mg by mouth daily - Carafate 1 gram by mouth twice a day - Flomax 0.4 mg by mouth daily - Lasix 40 mg by mouth in the morning and 60 mg by mouth at night - Zohydro extended release 100 mg by mouth twice a day - Ambien 10 mg by mouth at bedtime as needed The patient's aspirin and Xarelto have been instructed to be on hold. DISCHARGE INSTRUCTIONS: Hold aspirin and Xarelto until evaluated by ENT and world renowned chef and restaurant owner. Outpatient followup with primary care provider in seven days and world renowned chef and restaurant owner in 1-2 weeks, and ENT in seven days. Return to the hospital if symptoms worsen. Consider changing to alternative anticoagulation regimen given the patient with chronic kidney disease (CKD). Renally dose medication. The patient can be discharged one hour after transfusion to make sure patient does not have any respiratory distress or any complications from transfusion.
== END 2016-05-20 14:24 | disposition home or self-care (01) ==
LOC: M ED 11:20 → M SDC 12:25 → M MS5PR 12:39 → M SDC 05-20 14:24 → M MS5PR 05-20 14:24
PROVIDERS: ADMIT Hospitalist; ATTEND Hospitalist
DX: D62 Acute posthemorrhagic anemia (principal); R04.0 Epistaxis; N17.9 Acute kidney failure, unspecified; J34.2 Deviated nasal septum; J34.3 Hypertrophy of nasal turbinates; E87.6 Hypokalemia; I48.91 Unspecified atrial fibrillation; I25.10 Atherosclerotic heart disease of native coronary artery without angina pectoris; Z95.1 Presence of aortocoronary bypass graft; I50.30 Unspecified diastolic (congestive) heart failure; E83.42 Hypomagnesemia; E78.5 Hyperlipidemia, unspecified; E11.9 Type 2 diabetes mellitus without complications; Z79.4 Long term (current) use of insulin; Z79.01 Long term (current) use of anticoagulants; Z79.899 Other long term (current) drug therapy
CPT/HCPCS: 30520; 30930; 31238; 36415; 36430; 80048; 80053; 83735; 85014; 85018; 85027; 85610; 85730; 86850; 86870; 86900; 86901; 86920; 99284; J1100; J2250; J2405; J2710; J3010; P9016; Q9968

== ENCOUNTER 2016-05-30 10:24 | Inpatient (IN) | payer MEDICARE, OTHER ==
[~2016-05-30] VITALS: Ht 185.4 cm; Wt 98.1 kg
[~2016-05-30 10:24] MED LIST changes: -**UNRESOLVED NON-FORMULARY MED ORDER XX SCH; +ASCO25TA PO; +ASPI81TA21 PO; +BACT2OIN12; +ESCI20TA PO; +LACT20EL PO; +LISI2.5T3 PO; +METO12TA PO; +MOVA1TAB PO; +OCEA0.654; +OXYC1TAB23 PO; +PROA1AER INH; +PROBCAP4 PO; +ROCA0.25 PO; +SUCR1TA PO; +TORS20TA2 PO; +VITA100066 PO
[2016-05-30 11:42] LABS: MEAN CORPUSCULAR HGB CONC 32.7 g/dl (32.0-36.5); MEAN CORPUSCULAR VOLUME 94.8 fl (80.0-96.0); RED CELL DISTRIBUTION WIDTH 15.9 % (11.5-14.5)
[2016-05-30 11:44] LABS: INR 2.11
[2016-05-30 12:04] LABS: ANISOCYTOSIS 1+
[2016-05-30] MEDS ORDERED: ONDANSETRON 4MG/2ML VIAL (J2405) IV ONE (12:30)
[2016-05-30] MEDS: MORPHINE 2 MG/ML 1ML SYRINGE IV PRN ×2 (12:49→14:29)
[2016-05-30 12:57] LABS: ALKALINE PHOSPHATASE 68 U/L (45-117); ALT/SGPT 10 U/L (12-78); AST/SGOT 13 U/L (15-37); BILIRUBIN,DIRECT 0.3 MG/DL (0.0-0.2); BILIRUBIN,TOTAL 0.8 MG/DL (0.2-1.0); BLOOD UREA NITROGEN 62 MG/DL (7-18); CALCIUM LEVEL 8.9 MG/DL (8.8-10.2); CARBON DIOXIDE LEVEL 24 MEQ/L (21-32); CHLORIDE LEVEL 102 MEQ/L (98-107); CREATININE FOR GFR 2.56 MG/DL (0.70-1.30); GLUCOSE, FASTING 136 MG/DL (80-110); MAGNESIUM LEVEL 2.5 MG/DL (1.8-2.4); TOTAL PROTEIN 7.7 GM/DL (6.4-8.2)
[2016-05-30 13:07] LABS: DIGOXIN LEVEL 0.6 NG/ML (0.5-2.0)
[2016-05-30] MEDS ORDERED: MUPI30CR (13:07)
[2016-05-30] MEDS ORDERED: LACT20EL PO (13:07)
[2016-05-30] MEDS ORDERED: XARE15TA PO (13:12)
[2016-05-30] MEDS ORDERED: OXYC1TAB23 PO (13:12)
[2016-05-30] MEDS ORDERED: ASPI1TAB PO (13:12)
[2016-05-30 13:17] LABS: ANION GAP 12 MEQ/L (8-16); SODIUM LEVEL 138 MEQ/L (136-145)
[2016-05-30 13:18] LABS: ALBUMIN 3.7 GM/DL (3.2-5.2); ALBUMIN/GLOBULIN RATIO 0.93 (1.00-1.93)
--- NOTE | 2016-05-30 13:31 | HPEPDOC ---
Medical History and Physical Date of Admission 05/30/16 History and Physical ATTENDING: PCP: Dr Palomino Brand Marketing Specialist Dr Perera CC: Recurrent Rt sided epistaxis HPI: 60yoM with a past medical history significant for CAD/CABG, Afib, IDDM, anemia, recurrent epistaxis recently discharged 05/20/16 following recurrent epistaxis and cauterization procedure with ENT, who reports sudden onset of rt sided epistaxis approximately 3AM. Noted bleeding and clots and difficulty getting the bleeding to subside so he came to ED after speaking to ENT. He states he had a few small episodes of epistaxis after the cautery procedure. He was seen at ENT yesterday, was advised to continue with saline spray per pt. Pt denies SOB/CP, or recent NTG use. Pt states last dose of Xarelto was last evening. Overall, he states he completes ADLS at home, he does go shopping with his at his own pace. Denies any fevers, chills, weakness, fatigue, PULLIAM,cough, palpitations, abdominal pain, N/V/D or changes in bowel or bladder habits. Upon presentation to the hospital the patient was found to have recurrent Rt sided epistaxis, thus the hospitalist team was consulted. ENT is consulted, is planning to evaluate the pt in ED prior to further recommendations. PMHx: recurrent epistaxis with cautery procedures, rt side. H/O NV/CAD/Stent/CABG Afib CHF TTE 07/04 EF 40%, Grade 2 DD Hypomagnesemia H/O Fe def Anemia HLD Depressiion Insomnia HTN IDDM Chronic knee pain Chronic constipation MARY . CPAP/4 L o2 PSHX: CABG 1990 [place] CABG 1997 AICD B/L Ankle surgery Rt knee surgery x 2 EGD 01/04 [place] chronic inflammation Colonoscopy 01/04 adenomatous polyp x 1 Bronchoscopy 02/28 [place] Nasal Cautery. secondary to epistaxis -ENT. SOCHX: Resides in: [place] Marital Status: Kids: 4 Employment: retired [employer] Tobacco use: quit 1990 ETOH: Quit 1 year ago, previously drank daily. Illicit Drugs: Denies Recent travel: denies Advanced directives: none FAMHX: Mother: emphysema Father: Ca Siblings: 4 sister, 1 brother Alive, well Children: Alive, well Unexpected deaths due to medical reasons: None. ROS: As noted in HPI, otherwise 11pt ROS of systems reviewed and unremarkable. PE: GEN: 60yoM, appears stated age. Well-nourished, well developed. No acute distress. Alert and oriented x 3. Pleasant, interactive. HEENT: Normocephalic, atraumatic. Pupils are equal, round, and reactive to light. Extraocular movements are intact. No nystagmus appreciated. Sclera are nonicteric. Conjunctiva without injection. Nose midline. epistaxis noted Rt nostril. EACs both patent BL. TMs both visualized and blanco with good cone of light, no bulging or erythema. No facial asymmetry. Moist mucous membranes. Dentition fair. Pharynx pink and moist, no cobblestoning. Neck supple, trachea midline. No lymphadenopathy or thyromegaly appreciated. CHEST: Regular rate and rhythm, +S1, +S2. No JVD. LUNGS: Clear to auscultation bilaterally. No wheezes, rales, or rhonchi. Breathing appears symmetric and easy. Patient is speaking in full sentences. No accessory muscle use. ABD: Round, soft, non-tender, non-distended. +Bowel sounds throughout. No rebound or guarding. No costovertebral angle tenderness. EXT: Pulses 2+ bilaterally dorsalis pedis and radial. No lower extremity edema appreciated. Chronic venous changes noted. SKIN: [place], dry, warm. Capillary refill <2sec. No rashes. NEURO: Alert and oriented x 3. Cranial nerves III-XII are intact. No focal deficits appreciated. CXR pending. A&P: 60yoM with a past medical history significant for CAD/CABG, Afib, IDDM, anemia, recurrent epistaxis recently discharged 05/20/16 following recurrent epistaxis and cauterization procedure with ENT, who reports sudden onset of rt sided epistaxis approximately 3AM. Noted bleeding and clots and difficulty getting the bleeding to subside so he came to ED after speaking to ENT. He states he had a few small episodes of epistaxis after the cautery procedure. He was seen at ENT yesterday, was advised to continue with saline spray per pt. Recurrent Epistaxis. Pt is to be evaluated by ENT, Dr Huff to determine further recommendations. Type and cross ordered. Consent for blood on chart. TC. 2.56 currently. Baseline apears to be 1.8-1.9. Pt will be receiving transfusion. will recheck CMP in AM. Hold ELLIOT/Diuretic for now. Acute Blood loss Anemia. H/O Fe def. On Fe supplement as outpt. T&C completed. Pt receiving PRBC in ED. Consent on chart. Monitor H/H. Afib. Hold Xarelto/ASA for now. CAD/H/O NV/CABG. No recent NTG use. CIP/Trop x 1 neg. Recheck x 3. CHF/DD. TTE EF40%/Gr2 DD. Monitor closely. Cautious use of IVF. ACEI/Diuretic on hold. Hypomagnesemia. mag level 2.5. HLD. Statin. IDDM. Pt takes Levemir/SSI Chronic knee pain. Percocet prn (Pt takes Zohydro). chronic constipation. Lactulose (Pt takes Movantik). Addendum: Pt recieved nasal cauterization in ED as per ENT. DVT prophylaxis. SCD/TEDS The patient is a Full CODE. Vital Signs Vital Signs Date Time Temp Pulse Resp B/P Pulse Ox O2 Delivery O2 Flow Rate FiO2 05/30/16 12:49 20 05/30/16 10:24 98.3 56 100/46 96 Room Air Laboratory Data Labs 24H Laboratory Tests 2 05/30/16 11:22: Aspartate Amino Transf (AST/SGOT) 13L, Alanine Aminotransferase (ALT/SGPT) 10L, Alkaline Phosphatase 68, Total Bilirubin 0.8, Direct Bilirubin 0.3H, Albumin 3.7 , Anisocytosis 1+, Atypical Lymphocytes 5, Calcium Level 8.9, Creatine Kinase MB 1.3, Creatine Kinase MB Relative Index 1.88, Digoxin Level 0.6, Lymphocytes ( Manual) 20, Magnesium Level 2.5H, Monocytes (Manual) 4, Neutrophils 71, Platelet Estimate DECREASED, Prothromb Time International Ratio 2.11, Prothrombin Time 23.7H, Red Blood Cell Morphology , Total Creatine Kinase 69, Total Protein 7.7, Troponin I 0.05 CBC/BMP Laboratory Tests 05/30/16 11:22 Home Medications Scheduled (Zohydro ER) 50 Mg Cap 100 MG PO BID Ascorbic Acid (Vitamin C) 250 Mg Tab 250 MG PO BID Aspirin (Aspirin 81) 81 Mg Tab 81 MG PO DAILY Calcitriol (Rocaltrol) 0.25 Mcg Cap 0.25 MCG PO 3XW QPM: SUNDAY,SUNDAY,SUNDAY Cholecalciferol (Vitamin D) 1,000 Unit Tab 1,000 UNIT PO QPM Digoxin (Digoxin) 0.125 Mg Tab 0.125 MG PO QHS Escitalopram Oxalate (Escitalopram Oxalate) 20 Mg Tab 20 MG PO QHS Esomeprazole Magnesium Trihydr (Nexium) 40 Mg Cap 40 MG PO BID Ezetimibe (Zetia) 10 Mg Tab 10 MG PO QHS Ferrous Sulfate (Ferrous Sulfate) 325 Mg Tab 325 MG PO BID Insulin Glargine (Lantus) 1 Units/0.01 Ml Susp 40 UNITS SC BID Insulin Human Lispro (Humalog Kwikpen) 100 Unit/Ml Inj 1 DOSE SC AC PER SLIDING SCALE Lactobacillus Acidophilus (Probiotic) 1 Cap Cap 1 CAP PO DAILY Lactulose (Lactulose) 10 Gm/15 Ml Bailey 30 GM PO DAILY Lisinopril (Lisinopril) 2.5 Mg Tab 2.5 MG PO QHS Magnesium Chloride (Mag64) 64 Mg Tabcr 64 MG PO TID Metoprolol Tartrate (Metoprolol Tartrate) 25 Mg Tab 12.5 MG PO BID Mupirocin (Mupirocin) 1 Dose/30 Gm Cream 1 DOSE NA TID APPLY TO EACH NARE Naloxegol Oxalate (Movantik) 12.5 Mg Tab 12.5 MG PO DAILY Rivaroxaban (Xarelto) 15 Mg Tab 15 MG PO QHS Rosuvastatin Calcium (Crestor) 40 Mg Tab 40 MG PO QPM Spironolactone (Aldactone) 25 Mg Tab 12.5 MG PO DAILY Sucralfate (Carafate) 1 Gm Tab 1 GM PO BID Tamsulosin Hydrochloride (Flomax) 0.4 Mg Cap 0.4 MG PO DAILY Torsemide (Torsemide) 20 Mg Tab 40 MG PO QAM Torsemide (Torsemide) 20 Mg Tab 60 MG PO QPM Zolpidem Tartrate (Zolpidem Tartrate) 10 Mg Tab 10 MG PO QHS Scheduled PRN Nitroglycerin (Nitrostat) 0.4 Mg Subl 0.4 MG SL PRN PRN PRN CHEST PAIN Oxycodone/Acetaminophen (Oxycodone/Acetaminophen 5-325 mg) 1 Tab Tab 1 TAB PO Q6H PRN PRN PAIN Sodium Chloride ([place] Nasal [place]) 0.65 % Spr 2 SPRAY NA 5XD PRN PRN NASAL DRYNESS EACH NOSTRIL Allergies Coded Allergies: Talavera Pepper (Unverified Allergy, Severe, Vomitting, throat swells, 10/14/13 ) Per [facility] chart Calamine (Unverified Allergy, Intermediate, Hives, 10/14/13) Per [facility] chart Ketorolac (Unverified Adverse Reaction, Intermediate, Extreme itching, ) Per [facility] chart Daisy Akins May 30, 2016 13:31
[2016-05-30] MEDS ORDERED: POLYSPORIN OPHTH OINT 3.5 GM As Ordered ONE (13:41)
[2016-05-30] MEDS ORDERED: EPINEPHrine 1MG/ML INJ 30ML MD-VIAL XX ONE (13:45)
[2016-05-30] MEDS ORDERED: DEXTROSE 50% 50 ML SYRINGE IV PRN (15:15)
[2016-05-30] MEDS ORDERED: GLUCOSE 4 GM CHEW TABLET PO PRN (15:15)
[2016-05-30] MEDS ORDERED: GLUCAGON FOR INJ 1 MG VIAL (J1610) SC PRN (15:15)
--- NOTE | 2016-05-30 15:19 | REP ---
Portable chest x-ray: Sitting AP view. History: Epistaxis. Comparison chest x-rays from March 16, 2016. Findings: A unipolar pacemaker is seen in the right heart via the left side as before. Mild to moderate cardiomegaly is observed. Prior sternotomy wires are seen. Pulmonary vasculature is cephalized. There is no evidence of pleural effusion or pulmonary edema. Some fissural thickening is noted in the minor fissure. There is a question of radiolucent lesion in the left humeral head on today's portable chest x-ray. This is directly overlying by a film labeling. Consider shoulder radiographs. Impression: Pulmonary vascular cephalization, pacemaker, cardiomegaly, prior sternotomy. No pleural effusion or acute infiltrate. Question of a radiolucent lesion in the humeral head on the left. Consider shoulder radiographs. Signed by Keenan Enriquez MD 05/30/2016 03:53 P
[2016-05-30] MEDS ORDERED: PERCOCET 5MG/325MG TAB PO ONE (15:30)
[2016-05-30 16:50] VITALS: BP 108/54
--- NOTE | 2016-05-30 17:01 | ECGEPIP ---
Stationary ECG Study [facility] - ED Test Date: 2016-05-30 Pat Name: KEVIN BEACH Department: Room: - Gender: M Production Underwriter: ct : 1955 Requested By: Oma Headley Order Number: [id number] Reading MD: Bridget Ogden Measurements Intervals [place] Rate: 55 P: -4 VT: 123 QRS: 94 QRSD: 113 T: 143 QT: 438 QTc: 419 Interpretive Statements SINUS BRADYCARDIA BORDERLINE RIGHT AXIS DEVIATION INCOMPLETE RIGHT BUNDLE BRANCH BLOCK NONSPECIFIC ST & T-WAVE ABNORMALITY PRIOR 07/09/15 PACED Electronically Signed On 05-30-2016 17:01:03 EDT by Bridget Ogden
[2016-05-30] MEDS: HumaLOG INSULIN (NovoLOG) PER UNIT SC SCH (17:58)
[2016-05-30] MEDS: PERCOCET 5MG/325MG TAB PO PRN (19:11)
[2016-05-30 19:57] VITALS: BP 118/58
[2016-05-30] MEDS ORDERED: VITAMIN D 1,000 INTERNATIONAL UNITS TABLET PO SCH (21:00)
[2016-05-30] MEDS ORDERED: HumaLOG INSULIN (NovoLOG) PER UNIT SC SCH (21:00)
[2016-05-30] MEDS ORDERED: zolPIDEM TARTRATE 10MG TAB PO SCH (21:00)
[2016-05-30] MEDS ORDERED: ESCITALOPRAM OXALATE 10 MG TAB (LEXAPRO) PO SCH (21:00)
[2016-05-30] MEDS ORDERED: DIGOXIN 0.125 MG TAB PO SCH (21:00)
[2016-05-30] MEDS ORDERED: EZETIMIBE 10 MG TAB (ZETIA) PO SCH (21:00)
[2016-05-30] MEDS ORDERED: ROSUVASTATIN 10 MG TAB (CRESTOR) PO SCH (21:00)
[2016-05-30] MEDS: ZOHYDRO PO SCH (22:03)
[2016-05-30] MEDS: METOPROLOL TART 12.5 MG PER 1/2 TAB PO SCH (22:05)
[2016-05-30] MEDS: FERROUS SULFATE 325MG TAB PO SCH (22:05)
[2016-05-30] MEDS: ASCORBIC ACID 250 MG TAB PO SCH (22:07)
[2016-05-30] MEDS: PANTOPRAZOLE 40MG TAB (PROTONIX) PO SCH (22:07)
[2016-05-30] MEDS: SUCRALFATE 1 GM TAB PO SCH (22:07)
[2016-05-30] MEDS: LEVEMIR (INSULIN DETEMIR) 1 UNITS/0.01ML SC SCH (22:08)
[2016-05-30 23:30] VITALS: BP 119/67
[2016-05-31 03:00] VITALS: BP 123/67
[2016-05-31] MEDS: PERCOCET 5MG/325MG TAB PO PRN ×2 (06:05→14:41)
[2016-05-31 06:27] LABS: MEAN CORPUSCULAR HEMOGLOBIN 30.9 pg (27.0-33.0); MEAN CORPUSCULAR HGB CONC 32.7 g/dl (32.0-36.5); MEAN CORPUSCULAR VOLUME 94.6 fl (80.0-96.0); RED CELL DISTRIBUTION WIDTH 16.1 % (11.5-14.5); WHITE BLOOD COUNT 5.3 K/mm3 (4.0-10.0)
[2016-05-31 06:30] LABS: ALBUMIN 3.6 GM/DL (3.2-5.2); ALBUMIN/GLOBULIN RATIO 0.82 (1.00-1.93); CALCIUM LEVEL 8.9 MG/DL (8.8-10.2); CREATININE FOR GFR 2.42 MG/DL (0.70-1.30); GLOMERULAR FILTRATION RATE 29.3 (>49); POTASSIUM SERUM 3.9 MEQ/L (3.5-5.1)
[2016-05-31 06:41] LABS: BILIRUBIN,TOTAL 1.6 MG/DL (0.2-1.0)
[2016-05-31 08:00] VITALS: BP 132/61
[2016-05-31] MEDS: ZOHYDRO PO SCH (08:44)
[2016-05-31] MEDS: PANTOPRAZOLE 40MG TAB (PROTONIX) PO SCH (08:45)
[2016-05-31] MEDS: ASCORBIC ACID 250 MG TAB PO SCH (08:45)
[2016-05-31] MEDS: SUCRALFATE 1 GM TAB PO SCH (08:45)
[2016-05-31] MEDS: FERROUS SULFATE 325MG TAB PO SCH (08:45)
[2016-05-31 08:46] VITALS: BP 132/61
[2016-05-31] MEDS: LEVEMIR (INSULIN DETEMIR) 1 UNITS/0.01ML SC SCH (08:46)
[2016-05-31] MEDS: METOPROLOL TART 12.5 MG PER 1/2 TAB PO SCH (08:46)
[2016-05-31] MEDS: HumaLOG INSULIN (NovoLOG) PER UNIT SC SCH ×2 (08:46→12:00)
[2016-05-31] MEDS ORDERED: AUGMENTIN 875 MG TAB PO SCH (09:00)
[2016-05-31] MEDS ORDERED: LACTOBACILLUS ACIDOPHILUS CAP (BACID) PO SCH (09:00)
[2016-05-31] MEDS ORDERED: SODIUM CHLORIDE NASAL 0.65% SPRAY BTL (OCEAN) SCH (09:00)
[2016-05-31] MEDS ORDERED: TAMSULOSIN 0.4 MG CAP PO SCH (09:00)
[2016-05-31] MEDS ORDERED: LACTULOSE 20 GM/30 ML SYRUP UD PO SCH (09:00)
[2016-05-31 12:00] VITALS: BP 114/57
[2016-05-31] MEDS ORDERED: AMOX875T2 PO (14:45)
--- NOTE | 2016-05-31 14:58 | IPN ---
DATE: 05/31/2016 This is a 60-year-old gentleman doing well. No complaints at this time. He did receive a total of 2 units of packed red blood cells for his epistaxis, which has been well controlled since yesterday. No chest pain. No nausea, vomiting. States his appetite appears to be doing well. OBJECTIVE Temperature is 97.3, pulse 64, respiratory rate 18, blood pressure 114/57, SpO2 94% on room air. GENERAL: The patient appears to be in no acute distress, is alert and oriented. HEENT: Unremarkable. LUNGS: Clear. HEART: Regular rhythm. ABDOMEN: Soft. EXTREMITIES: No edema. No calf tenderness. LABORATORIES: White count 5.3, hemoglobin 9.5, platelets 100,000. Sodium 137, potassium 3.9, chloride 101, bicarb 28, anion gap 8, BUN 64, creatinine 2.42, glucose is 173, bilirubin 1.6, AST 17, ALT 10, alkaline phosphatase 67. ASSESSMENT/PLAN: 1. Recurrent epistaxis treated with cauterization in the emergency department by ENT. He does appear to be doing well. His hemoglobin and hematocrit appears to be stable at this point. I would like to touch base with ENT again to see if he can be discharged or if we need to follow him another 24 hours 2. Prior history of myocardial infarction, coronary artery disease, stent placement and coronary artery bypass grafting (CABG). No chest pain issues. 3. Atrial fibrillation. Aspirin and Xarelto are currently on hold. We will hold this for another week before resuming. 4. Congestive heart failure (CHF). Last echo was June 2015, ejection fraction 40% at that time. 5. Hypomagnesemia, stable. 6. History of iron deficient anemia, stable. 7. Hyperlipidemia, stable. 8. Depression, stable. 9. Insomnia, stable. 10. Hypertension. No current issues. 11. Diabetes. Continue with current medications. 12. Chronic knee pain. No issues. 13. Chronic constipation, stable. 14. Obstructive sleep apnea (MARY) on C-PAP at home, no issues. DISPOSITION: The patient does appear to be doing well. Will anticipate discharge later today. Spoke with ENT. Dr. Huff unfortunately will not be able to see the patient until after he gets out of the office later today, which precludes the patient being discharged prior to noon. However, the patient is nonetheless anxious to get home if he is cleared by ENT. Therefore we will put the orders in the chart so that once he is cleared he can go home. MIGUEL ANGEL
--- NOTE | 2016-05-31 15:36 | DSES ---
DATE OF ADMISSION: 05/30/2016 DATE OF DISCHARGE: 05/31/2016 PRIMARY CARE PROVIDER: Dr. Palomino INSPECTOR WATCH PARTS: Dr. Perera MINERAL TECHNOLOGIST: Dr. Yogesh Huff PROCEDURES: Cautery of nasal bleed. COMPLICATIONS: None. ADMISSION/DISCHARGE DIAGNOSES: 1. Epistaxis, which is recurrent, requiring cauterization. 2. Prior history of myocardial infarction ([place]), coronary artery disease, stent, coronary artery bypass graft (CABG). 3. Atrial fibrillation, rate controlled. 4. Congestive heart failure (CHF). 5. Iron-deficient anemia. 6. Hyperlipidemia. 7. Depression. 8. Insomnia. 9. Hypertension. 10. Diabetes. 11. Chronic knee pain. 12. Chronic constipation. 13. Obstructive sleep apnea on continuous positive airway pressure (CPAP). BRIEF HOSPITAL COURSE: Patient presented to the emergency department with recurrent right-sided epistaxis. Initially, we did hold the aspirin, Xarelto, and ears, nose, and throat (ENT) was consulted, did perform cautery. We observed him overnight in progressive care unit (PCU) on telemetry. He had no further issues, no side effects, and his labs remained unremarkable. Please refer to the history and physical (H and P) for his admission note as well as his progress note for today. Again, he does appear to be at baseline and appropriate for home discharge. DISCHARGE CONDITION: Is good. DISPOSITION: Discharged to home. DISCHARGE MEDICATIONS: - Augmentin 875 mg twice a day for seven more days - vitamin C 250 mg twice a day - calcitriol 0.25 mcg three times weekly - vitamin D 1000 units daily - digoxin 0.125 mg nightly - Lexapro 20 mg daily - Nexium 40 mg twice a day - Zetia 10 mg daily - ferrous sulfate 325 mg twice a day - Lantus 40 units twice a day - Humalog as directed before food - probiotic one capsule daily - lactulose 30 grams by mouth daily as needed - lisinopril 2.5 mg nightly - magnesium chloride 64 mg three times a day - metoprolol 12.5 mg twice a day - mupirocin one dose nasally three times a day - MOVANTIK 12.5 mg daily - sublingual nitroglycerin 0.4 mg every 5 minutes as needed chest pain - Percocet 5/325 mg every 6 hours as needed - Crestor 40 mg daily - [place] nasal spray as directed, two sprays per nostril five times daily - Aldactone 12.5 mg daily - Carafate 1 gram twice a day - Flomax 0.4 mg daily - tprsemide 40 mg every morning and 60 mg every evening - Ambien 10 mg nightly MEDICATIONS ON HOLD: Aspirin 81 mg and Xarelto 15 mg to be held for a week. This can be restarted by his primary care provider or respiratory scientist. DISCHARGE INSTRUCTIONS: Discharged to home. Activity as tolerated. Continue medications as outlined above. Followup with Dr. Palomino in a week, and have discussion on resumption of his aspirin and/or Xarelto. Keep his regular appointments with Dr. Perera, and should followup with ears, nose, and throat (ENT) in a week as well. Seek medical attention if symptoms worsen or progress. Discharge took approximately 35 minutes. MIGUEL ANGEL
== END 2016-05-31 17:33 | disposition home or self-care (01) | DRG 813 ==
LOC: M ED 12:42 → M ED INP 14:45 → OBSVTOIN 15:04 → M PCU 16:35
PROVIDERS: ADMIT Internal Medicine; ATTEND Hospitalist
PROC: 30233N1 Transfusion of Nonautologous Red Blood Cells into Peripheral Vein, Percutaneous Approach (ICD-10-PCS; principal; 2016-05-30)
DX: D68.32 Hemorrhagic disorder due to extrinsic circulating anticoagulants (principal); N17.9 Acute kidney failure, unspecified; R04.0 Epistaxis; I48.91 Unspecified atrial fibrillation; D50.9 Iron deficiency anemia, unspecified; E78.5 Hyperlipidemia, unspecified; F32.9 Major depressive disorder, single episode, unspecified; G47.00 Insomnia, unspecified; I10 Essential (primary) hypertension; E11.9 Type 2 diabetes mellitus without complications; G47.33 Obstructive sleep apnea (adult) (pediatric); Z99.89 Dependence on other enabling machines and devices; I27.2 Other secondary pulmonary hypertension; I25.10 Atherosclerotic heart disease of native coronary artery without angina pectoris; Z98.61 Coronary angioplasty status; K59.09 Other constipation; Z79.4 Long term (current) use of insulin; Z79.82 Long term (current) use of aspirin; Z79.899 Other long term (current) drug therapy; Z95.810 Presence of automatic (implantable) cardiac defibrillator; Z87.891 Personal history of nicotine dependence; Z88.8 Allergy status to other drugs, medicaments and biological substances; E83.42 Hypomagnesemia

== ENCOUNTER → 2016-06-26 | Outpatient (REF) | payer MEDICARE, OTHER ==
[~2016-06-26] MED LIST changes: +AMOX875T2 PO; +ASPI1TAB PO; +MUPI30CR; +XARE15TA PO
[2016-06-26 19:30] LABS: FOLATE 12.6 NG/ML (>5.4)
[2016-06-26 19:40] LABS: PERCENT SATURATION 15.8 % (19.7-37.4)
== END ==
LOC: M LAB REF 17:07
PROVIDERS: ATTEND Internal Medicine Nephrology
DX: D50.9 Iron deficiency anemia, unspecified (principal)

== ENCOUNTER → 2016-06-28 | Outpatient (CLI) | payer MEDICARE, OTHER ==
--- NOTE | 2016-06-28 12:00 | REP ---
NUCLEAR GI BLOOD LOSS SCAN: Following the intravenous administration of 25.9 mCi of technetium 99m labeled red blood cells using the UltraTag kit, multiple images of the abdomen and pelvis are performed for a period of 60 minutes. Normal blood pool structures are seen including the great vessels of the abdomen. There is activity in the liver and spleen. There is no focus of abnormal activity in the GI tract that would suggest the presence of active GI bleeding. IMPRESSION: No compelling scintigraphic evidence of active GI bleeding at this time. Signed by Dale Gilman MD 06/28/2016 04:55 P
== END ==
LOC: M RAD 09:24
PROVIDERS: ATTEND Nurse Practitioner Adult Health
DX: K92.2 Gastrointestinal hemorrhage, unspecified (principal)
CPT/HCPCS: 78278; A9560

== ENCOUNTER → 2016-07-01 | Outpatient (CLI) | payer MEDICARE, OTHER | LOC: M LAB 12:35 | PROVIDERS: ATTEND Internal Medicine Nephrology | DX: D50.9 Iron deficiency anemia, unspecified (principal) ==

== ENCOUNTER 2016-07-03 08:59 | Outpatient (CLI) | payer MEDICARE, OTHER ==
[~2016-07-03] VITALS: Ht 154.9 cm; Wt 99.1 kg
== END 2016-07-03 14:10 | disposition home or self-care (01) ==
LOC: M INFU 08:59
PROVIDERS: ATTEND Internal Medicine Nephrology
DX: D50.9 Iron deficiency anemia, unspecified (principal); Z87.891 Personal history of nicotine dependence; Z88.8 Allergy status to other drugs, medicaments and biological substances; Z91.018 Allergy to other foods; Z79.4 Long term (current) use of insulin; Z79.899 Other long term (current) drug therapy
CPT/HCPCS: 36430; P9016

== ENCOUNTER → 2016-07-04 | Outpatient (REF) | payer MEDICARE, OTHER | LOC: M LAB REF 16:50 | PROVIDERS: ATTEND Internal Medicine | DX: D50.9 Iron deficiency anemia, unspecified (principal); N18.4 Chronic kidney disease, stage 4 (severe); I50.42 Chronic combined systolic (congestive) and diastolic (congestive) heart failure ==

== ENCOUNTER → 2016-07-27 | Outpatient (REF) | payer MEDICARE, OTHER ==
[2016-07-27 13:15] LABS: RETIC HEMOGLOBIN CONTENT CHr 34.1 PG (24-36); RETICULOCYTE % ADVIA2120 3.1 % (0.5-1.5)
== END ==
LOC: M LAB REF 12:25
PROVIDERS: ATTEND Nurse Practitioner Adult Health
DX: D50.9 Iron deficiency anemia, unspecified (principal)

== ENCOUNTER 2016-07-28 09:10 | Outpatient (CLI) | payer MEDICARE, OTHER ==
[~2016-07-28 09:10] MED LIST changes: +ACETAMINOPHEN TAB 650MG DOSE (2X325MG) PO SCH; +diphenhydrAMINE 25 MG CAP PO SCH
[2016-07-28] MEDS ORDERED: FUROSEMIDE 40 MG/4 ML VIAL (J1940) IV ONE (09:30)
== END 2016-07-28 14:00 | disposition home or self-care (01) ==
LOC: M INFU 09:10
PROVIDERS: ATTEND Nurse Practitioner Adult Health
DX: D64.9 Anemia, unspecified (principal); Z87.891 Personal history of nicotine dependence; Z88.8 Allergy status to other drugs, medicaments and biological substances; Z91.018 Allergy to other foods; Z79.899 Other long term (current) drug therapy
CPT/HCPCS: 36430; J1940; P9016

== ENCOUNTER → 2016-08-21 | Outpatient (CLI) | payer MEDICARE, OTHER ==
[~2016-08-21] MED LIST changes: -ACETAMINOPHEN TAB 650MG DOSE (2X325MG) PO SCH; +LACT10SO3 PO; +LEVA1TAB2 PO; -LEVA500T PO; -METO-209 PO; -METO12TA PO; +METO1TAB33 PO; +METO1TAB87 PO; -PROA1AER INH; +PROAAER10 INH; -ZETI10TA2 PO; +ZETI10TA30 PO; -diphenhydrAMINE 25 MG CAP PO SCH
[2016-08-21 17:10] LABS: INR 1.18
[2016-08-21 20:39] LABS: ALBUMIN 3.7 GM/DL (3.2-5.2); ALBUMIN/GLOBULIN RATIO 0.88 (1.00-1.93); ALKALINE PHOSPHATASE 74 U/L (45-117); ALT/SGPT 20 U/L (12-78); AST/SGOT 30 U/L (15-37); BILIRUBIN,DIRECT 0.3 MG/DL (0.0-0.2); BILIRUBIN,TOTAL 0.8 MG/DL (0.2-1.0); FERRITIN 234 NG/ML (26-388); PERCENT SATURATION 17.8 % (19.7-37.4); TOTAL IRON BINDING CAPACITY 286 UG/DL (250-450); TOTAL PROTEIN 7.9 GM/DL (6.4-8.2)
[2016-08-23 11:58] LABS: HEPATITIS B SURFACE ANTIBODY NEGATIVE (POSITIVE)
[2016-08-24 10:35] LABS: ALBUMIN % 49.1 % (55.8-66.1)
[2016-08-24 10:36] LABS: ALBUMIN 3.88 GM/DL (3.29-5.55); GAMMA GLOBULIN % 21.9 % (11.1-18.8)
[2016-08-25 00:15] LABS: ALPHA 1 ANTITRYPSIN 151 mg/dL (90-200); TISSUE TRANSGLUTAMINASE IgG <2 U/mL (0-5)
== END ==
LOC: M LAB 14:44
PROVIDERS: ATTEND Internal Medicine Gastroenterology
DX: D50.9 Iron deficiency anemia, unspecified (principal); K92.1 Melena; K21.9 Gastro-esophageal reflux disease without esophagitis; R11.0 Nausea; R16.1 Splenomegaly, not elsewhere classified; K59.03 Drug induced constipation; B16.1 Acute hepatitis B with delta-agent without hepatic coma; Z79.899 Other long term (current) drug therapy; Z12.5 Encounter for screening for malignant neoplasm of prostate
CPT/HCPCS: 36415; 80076; 82103; 82105; 82390; 82728; 83550; 84165; 84443; 85610; 85730; 86038; 86255; 86256; 86376; 86706; 86708; 86709; 86803; 87340; G0103

== ENCOUNTER → 2016-08-21 | Outpatient (CLI) | payer MEDICARE, OTHER | LOC: M LAB 14:40 | PROVIDERS: ATTEND Nurse Practitioner Women's Health | DX: Z12.5 Encounter for screening for malignant neoplasm of prostate (principal) ==

== ENCOUNTER → 2016-08-24 | Outpatient (CLI) | payer MEDICARE, OTHER ==
[~2016-08-24] MED LIST changes: +E-Z-PAQUE 96% w/w SUSP 176GM BTL As Ordered ONE
--- NOTE | 2016-08-24 12:53 | REP ---
Clinical: Anemia and melena with abdominal pain. Findings: Stove [place] film of the abdomen is unremarkable. Single contrast small bowel follow-through examination demonstrates normal motility, peristalsis, and mucosal outline of the duodenum, jejunum, and ileum including terminal ileum, ileocecal valve and cecum. Total fluoroscopic time 1 minute 7 seconds Impression: Normal small bowel follow-through examination. Signed by Kiran Soriano MD 08/24/2016 12:45 P
== END ==
LOC: M RAD 09:40
PROVIDERS: ATTEND Internal Medicine Gastroenterology
DX: D50.9 Iron deficiency anemia, unspecified (principal); K92.1 Melena; K21.9 Gastro-esophageal reflux disease without esophagitis; R16.1 Splenomegaly, not elsewhere classified; K29.60 Other gastritis without bleeding; B16.1 Acute hepatitis B with delta-agent without hepatic coma

== ENCOUNTER → 2016-12-28 | Outpatient (REF) | payer MEDICARE, OTHER ==
[~2016-12-28] MED LIST changes: -E-Z-PAQUE 96% w/w SUSP 176GM BTL As Ordered ONE
[2016-12-28 16:03] LABS: ALBUMIN 4.2 GM/DL (3.2-5.2); CALCIUM LEVEL 9.3 MG/DL (8.8-10.2); CREATININE FOR GFR 2.08 MG/DL (0.70-1.30); GLOMERULAR FILTRATION RATE 34.7 (>49); MAGNESIUM LEVEL 2.3 MG/DL (1.8-2.4); PHOSPHORUS LEVEL 3.7 MG/DL (2.5-4.9); POTASSIUM SERUM 3.9 MEQ/L (3.5-5.1)
== END ==
LOC: M LABDRAW1 15:09
PROVIDERS: ATTEND Physician Assistant
DX: I50.42 Chronic combined systolic (congestive) and diastolic (congestive) heart failure (principal)